=== PATIENT | female | born 1995 | race Caucasian/White ===

== ENCOUNTER 2021-05-31 16:37 | Observation (INO) | payer BC ==
[2021-05-31] MEDS ORDERED: SODIUM CHLORIDE 0.9% 1,000 ML IV STA (16:53)
[2021-05-31 17:10] LABS: Basophils % (A) 0 %; Eosinophils # (A) 0.1 k/uL (0-0.7); Eosinophils % (A) 1 %; HCT 39.5 % (34.0-46.0); HGB 13.3 gm/dL (11.4-16.0); Lymphocytes # (A) 2.3 k/uL (1.0-4.8); Lymphocytes % (A) 23 %; MCH 30.2 pg (25.0-35.0); MCHC 33.6 g/dL (31.0-37.0); MCV 89.8 fL (80.0-100.0); Mean Platelet Volume 7.2; Monocytes # (A) 0.5 k/uL (0-1.0); Monocytes % (A) 5 %; Neutrophils # (A) 7.1 k/uL (1.3-7.7); Neutrophils % (A) 70 %; Platelet Count 294 k/uL (150-450); RBC 4.41 m/uL (3.80-5.40); RDW 12.6 % (11.5-15.5); WBC 10.1 k/uL (3.8-10.6)
--- NOTE | 2021-05-31 17:17 | ED ---
Chest Pain HPI - General Stated Complaint: High BP Time Seen by Provider: 05/31/21 16:44 Source: patient, EMS, RN notes reviewed Mode of arrival: EMS Limitations: no limitations - History of Present Illness Initial Comments: This is a pleasant 25-year-old female presents to emergency department complaining of palpitations, intermittent chest discomfort, racing heartbeat, and elevated blood pressure. Patient ended up going to the urgent [facility] today due to symptoms that she has had since having COVID-19 in April. Patient states she tested positive in early April. Subsequently she developed these symptoms. She really denies any significant shortness of breath but does have chest discomfort and palpitations. Patient was sent here for evaluation. Patient was noted be hypertensive at urgent care as well. Denies any current chest pain. However she has a sensation of racing heartbeat. No leg pain or leg swelling. No chance of . Patient does take control pills. No other significant past medical history. No significant family history per patient. Nonsmoker. MD Complaint: chest pain - Related Data Home Medications Medication Instructions Recorded Confirmed Norethindrone [Shruthi] 0.35 mg PO DAILY 05/31/21 05/31/21 Allergies Allergy/AdvReac Type Severity Reaction Status Date / Time No Known Allergies Allergy Verified 05/31/21 18:30 Review of Systems ROS Statement: Those systems with pertinent positive or pertinent negative responses have been documented in the HPI. ROS Other: All systems not noted in ROS Statement are negative. Past Medical History Past Medical History: No Reported History History of Any Multi-Drug Resistant Organisms: None Reported Past Surgical History: No Surgical Hx Reported Past Psychological History: No Psychological Hx Reported Smoking Status: Never smoker Past Alcohol Use History: Occasional Past Drug Use History: Marijuana General Exam - General Exam Comments Initial Comments: Anxious-appearing 25-year-old female does not appear to be ill or toxic. Vital signs reviewed. Patient is hypertensive with a systolic of just over 170 and a diastolic of just over 100. Tachycardia. Limitations: no limitations General appearance: alert, anxious Head exam: Present: atraumatic, normocephalic, normal inspection Eye exam: Present: normal appearance, PERRL, EOMI. Absent: scleral icterus, conjunctival injection, periorbital swelling ENT exam: Present: normal exam, mucous membranes moist Neck exam: Present: normal inspection. Absent: tenderness, meningismus, lymphadenopathy Respiratory exam: Present: normal lung sounds bilaterally. Absent: respiratory distress, wheezes, rales, rhonchi, stridor Cardiovascular Exam: Present: normal rhythm, tachycardia, normal heart sounds. Absent: systolic murmur, diastolic murmur, rubs, gallop, clicks GI/Abdominal exam: Present: soft, normal bowel sounds. Absent: distended, tenderness, guarding, rebound, rigid Extremities exam: Present: normal inspection, full ROM, normal capillary refill. Absent: tenderness, pedal edema, joint swelling, calf tenderness Back exam: Present: normal inspection Neurological exam: Present: alert, oriented X3, CN II-XII intact Psychiatric exam: Present: normal affect, normal mood Skin exam: Present: warm, dry, intact, normal color. Absent: rash Course Vital Signs 05/31/21 05/31/21 05/31/21 16:41 18:59 21:07 Temperature 97.6 F Pulse Rate 133 H 121 H 120 H Respiratory 18 16 18 Rate Blood Pressure 179/108 146/106 162/102 O2 Sat by Pulse 100 100 98 Oximetry 05/31/21 05/31/21 21:51 23:33 Temperature Pulse Rate 125 H 101 H Respiratory 18 18 Rate Blood Pressure 147/106 O2 Sat by Pulse 100 98 Oximetry - Reevaluation(s) Reevaluation #1: 05/31/21 19:28 Medical record is reviewed Symptoms are improved here in the emergency department Patient is informed of results and questions answered Patient in no distress Patient states her anxiety is improved however she remains tachycardic with a heart rate of 122. Reevaluation #2: 06/01/21 21:30 Medical record is reviewed Symptoms are improved here in the emergency department Patient is informed of results and questions answered Patient in no distress Reevaluation #3: 06/01/21 22:31 Medical record is reviewed Symptoms are improved here in the emergency department Patient is informed of results and questions answered Patient in no distress Patient is still tachycardic. She is still here in the ER. Still hypertensive. Admitted under [facility] hospitalist group. [facility] Patient presents with chest discomfort, palpitations, tachycardia, hypertension since being diagnosed with COVID-19 in early April. Symptoms have persisted and actually worsened to a point where she went to urgent care today. Patient is on control pills. Patient has a PERC score of 2. We'll order a cardiac evaluation to include d-dimer. EKG done at 5:05 PM reveals sinus tachycardia at a rate of 117. Nonspecific T wave abnormalities seen in the inferiorly. Baseline artifact. No comparison study. Normal intervals. Patient had large right adrenal mass noted on CTA of the chest. No other acute findings. This does raise the suspicion of other disorders such as pheochromocytoma. Given the patient's atypical chest pain, hypertension, and tachycardia, where going to admit. Discussed in detail with the APC from the hospitalist group. Patient admitted under Dr. Austin. The case was discussed in detail with ED attending physician. Presentation, findings, treatment plan discussed in detail. - PERC Rule Heart Rate < 100: (1) Yes No Exogenous Estrogen: (1) Yes Critical Care Time Critical Care Time: Yes (31) Total Critical Care Time: 31 Critical Care Time: Multiple re-evaluations. Reevaluating patient for response to interventions. Multiple diagnostics with interpretation. Disposition Clinical Impression: Sinus tachycardia, Hypertension, Atypical chest pain, Adrenal mass, right Disposition: ADMITTED IP TO THIS [facility] Condition: Fair Time of Disposition: 21:13 Decision to Admit Reason: Admit from EC
[2021-05-31 17:23] LABS: ALT 14 U/L (4-34); AST 20 U/L (14-36); African American GFR (CKD) >90 (>60 ml/min/1.73 sqM); Albumin 4.9 g/dL (3.5-5.0); Alkaline Phosphatase 45 U/L (38-126); Amphetamine Screen,Urine Not Detected (NotDetected); Anion Gap 10 mmol/L; Barbiturate Screen,Urine Not Detected (NotDetected); Benzodiazepines Screen,Urine Not Detected (NotDetected); Blood Urea Nitrogen 9 mg/dL (7-17); Calcium 9.7 mg/dL (8.4-10.2); Carbon Dioxide 23 mmol/L (22-30); Chloride 108 mmol/L (98-107); Cocaine Screen,Urine Not Detected (NotDetected); Glucose 102 mg/dL (74-99); Magnesium 1.8 mg/dL (1.6-2.3); Methadone Screen, Urine Not Detected (NotDetected); Non-African American GFR(CKD) >90 (>60 ml/min/1.73 sqM); Opiate Screen,Urine Not Detected (NotDetected); Oxycodone Screen, Urine Not Detected (NotDetected); Phencyclidine Screen,Urine Not Detected (NotDetected); Potassium 3.5 mmol/L (3.5-5.1); Sodium 141 mmol/L (137-145); Total Bilirubin 0.8 mg/dL (0.2-1.3); Total Protein 7.9 g/dL (6.3-8.2); Tricyclic Antidepressant,Urine Not Detected (NotDetected); Urn Cannabinoid Scrn Not Detected (NotDetected)
--- NOTE | 2021-05-31 17:39 | XR ---
EXAMINATION TYPE: XR chest 1V portable DATE OF EXAM: 05/31/2021 COMPARISON: NONE HISTORY: Chest pain TECHNIQUE: FINDINGS: Heart and mediastinum are normal. Lungs are clear. Diaphragm is normal. Bony thorax appears normal. There are chest leads. IMPRESSION: Normal chest.
[2021-05-31] MEDS ORDERED: LORazepam 2 MG/ML INJ IV STA (17:44)
--- NOTE | 2021-05-31 20:58 | CT ---
EXAMINATION TYPE: CT angio chest DATE OF EXAM: 05/31/2021 COMPARISON: None HISTORY: chest pain and rapid heart rate CT DLP: 380.9 mGycm Automated exposure control for dose reduction was used. CONTRAST: Performed with IV Contrast, patient injected with 140 mL of Isovue 370. There are Three-D postprocessed images. The lungs are clear of infiltrate. There is no evidence of a pulmonary mass. There is no pleural effu luann. There is no pericardial effusion. Heart size is normal. There is no mediastinal adenopathy. There are no hilar masses. There is intact thoracic aorta. There is no evidence of aneurysm or dissection. There is normal contrast opacification of the pulmonary arteries. There are no filling defects. The t horacic spine is intact. There is no compression fracture. There is rounded low density 6 cm mass inv olving the right adrenal gland that has density of 10 and could be a cyst or myelolipoma. IMPRESSION: No evidence of pulmonary embolism. Large right adrenal mass with low-attenuation and suggestive of be nign disease.
[2021-05-31] MEDS ORDERED: LORazepam 2 MG/ML INJ IV PRN (21:16)
[2021-05-31] MEDS ORDERED: NALOXONE 0.4 MG/ML 1 ML VIAL IV PRN (21:16)
[2021-05-31] MEDS ORDERED: ACETAMINOPHEN TAB 325 MG TAB PO PRN (21:16)
[2021-05-31] MEDS ORDERED: ONDANSETRON 4 MG/2 ML VIAL IVP PRN (21:16)
[2021-05-31] MEDS ORDERED: MELATONIN 3 MG TABLET PO PRN (21:16)
[2021-05-31] MEDS: SODIUM CHLORIDE 0.9% 1,000 ML IV SCH (21:52)
[2021-06-01 00:51] VITALS: RESP 16
[2021-06-01 07:22] LABS: Basophils % (A) 0 %; Eosinophils # (A) 0.1 k/uL (0-0.7); Eosinophils % (A) 1 %; HCT 36.3 % (34.0-46.0); HGB 12.2 gm/dL (11.4-16.0); Lymphocytes # (A) 2.4 k/uL (1.0-4.8); Lymphocytes % (A) 26 %; MCH 30.6 pg (25.0-35.0); MCHC 33.5 g/dL (31.0-37.0); MCV 91.3 fL (80.0-100.0); Mean Platelet Volume 7.2; Monocytes # (A) 0.6 k/uL (0-1.0); Monocytes % (A) 6 %; Neutrophils # (A) 5.9 k/uL (1.3-7.7); Neutrophils % (A) 65 %; Platelet Count 246 k/uL (150-450); RBC 3.98 m/uL (3.80-5.40); RDW 12.7 % (11.5-15.5); WBC 9.1 k/uL (3.8-10.6)
[2021-06-01 07:51] LABS: African American GFR (CKD) >90 (>60 ml/min/1.73 sqM); Anion Gap 5 mmol/L; Blood Urea Nitrogen 7 mg/dL (7-17); Calcium 8.8 mg/dL (8.4-10.2); Carbon Dioxide 23 mmol/L (22-30); Chloride 109 mmol/L (98-107); Glucose 94 mg/dL (74-99); Magnesium 1.9 mg/dL (1.6-2.3); Non-African American GFR(CKD) >90 (>60 ml/min/1.73 sqM); Potassium 3.5 mmol/L (3.5-5.1); Sodium 137 mmol/L (137-145)
[2021-06-01] MEDS: SODIUM CHLORIDE 0.9% 1,000 ML IV SCH (11:10)
--- NOTE | 2021-06-01 13:16 | P.HPIM ---
History of Present Illness Patient was in 25-year-old female went into urgent care because of palpitations were anxious was anxious at the time. Patient was diagnosed with the COVID-19 last month. In urgent care patient is found to have elevated blood pressure systolic is going up to 200 and also tachycardia because of which the patient was sent to ER. Patient does have history of anxiety and was anxious during that time. Because of her recent COVID-19 infection there is a concern of pulmonary embolism considering her tachycardia CT of the chest was obtained, there is no pulmonary embolism but there is a large right adrenal mass with fluid attenuation are low Hounsfield units surgery history of benign disease. Because of this concern patient was admitted for a 24-hour urine metanephrine metanephrines. Since patient already collected half of that urine USE the collection after which patient will be discharged to follow up with the endocrinology as an outpatient and patient preferred to her primary care physician as well. Patient's EKG did show some T-wave inversions but this is probably secondary to left ventricle strain, patient doesn't have any chest pain and troponin is negative REVIEW OF SYSTEMS: CONSTITUTIONAL: No fever, no malaise, no fatigue. HEENT: No recent visual problems or hearing problems. Denied any sore throat. CARDIOVASCULAR: No chest pain, orthopnea, PND, no palpitations, no syncope. PULMONARY: No shortness of breath, no cough, no hemoptysis. GASTROINTESTINAL: No diarrhea, no nausea, no vomiting, no abdominal pain. NEUROLOGICAL: No headaches, no weakness, no numbness. HEMATOLOGICAL: Denies any bleeding or petechiae. GENITOURINARY: Denies any burning micturition, frequency, or urgency. MUSCULOSKELETAL/RHEUMATOLOGICAL: Denies any joint pain, swelling, or any muscle pain. ENDOCRINE: Denies any polyuria or polydipsia. The rest of the 14-point review of systems is negative. PHYSICAL EXAMINATION: GENERAL: The patient is alert and oriented x3, not in any acute distress. Well developed, well nourished. HEENT: Pupils are round and equally reacting to light. EOMI. No scleral icterus. No conjunctival pallor. Normocephalic, atraumatic. No pharyngeal erythema. No thyromegaly. CARDIOVASCULAR: S1 and S2 present. No murmurs, rubs, or gallops. PULMONARY: Chest is clear to auscultation, no wheezing or crackles. ABDOMEN: Soft, nontender, nondistended, normoactive bowel sounds. No palpable organomegaly. MUSCULOSKELETAL: No joint swelling or deformity. EXTREMITIES: No cyanosis, clubbing, or pedal edema. NEUROLOGICAL: Gross neurological examination did not reveal any focal deficits. SKIN: No rashes. Assessment and plan -Elevated blood pressure, tachycardia: Probably secondary to anxiety although it's reasonable considering adrenal mass and the CT to do urinary metanephrines for which patient will not need hospitalization patient will be discharged later today after collection of 24 hours of urine sample. Discussed with packerhead machine operator on phone. -Adrenal adenoma: As mentioned above further workup as an outpatient Patient will be discharged today patient will be referred to a primary care physician and packerhead machine operator. Past Medical History Past Medical History: No Reported History History of Any Multi-Drug Resistant Organisms: None Reported Past Surgical History: No Surgical Hx Reported Past Psychological History: No Psychological Hx Reported Smoking Status: Never smoker Past Alcohol Use History: Occasional Past Drug Use History: Marijuana Additional Drug Use History / Comment(s): occasional use of alcohol and marijuana Medications and Allergies Home Medications Medication Instructions Recorded Confirmed Type Norethindrone [Shruthi] 0.35 mg PO DAILY 05/31/21 05/31/21 History Allergies Allergy/AdvReac Type Severity Reaction Status Date / Time No Known Allergies Allergy Verified 05/31/21 18:30 Physical Exam Vitals: Vital Signs Temp Pulse Pulse Resp BP BP Pulse Ox 06/01/21 12:17 98.0 F 103 H 06/01/21 11:07 98.2 F 103 H 16 144/100 97 06/01/21 08:00 98.2 F 74 16 170/106 97 06/01/21 04:15 65 16 134/82 97 06/01/21 01:25 98.1 F 108 H 16 152/106 98 06/01/21 00:49 98 16 147/104 98 05/31/21 23:33 101 H 18 147/106 98 05/31/21 21:51 125 H 18 100 05/31/21 21:07 120 H 18 162/102 98 05/31/21 18:59 121 H 16 146/106 100 05/31/21 16:41 97.6 F 133 H 18 179/108 100 Intake and Output 05/31/21 06/01/21 06/01/21 22:59 06:59 14:59 Other: Voiding Method Toilet Toilet # Voids 1 Weight 79.379 kg 79.379 kg Results CBC & Chem 7: 06/01/21 06:51 06/01/21 06:51 Labs: Abnormal Lab Results - Last 24 Hours (Table) 05/31/21 06/01/21 Range/Units 16:56 06:51 Chloride 108 H 109 H (98-107) mmol/L Glucose 102 H (74-99) mg/dL Thrombosis Risk Factor Assmnt - Choose All That Apply Each Factor Represents 1 point: Oral contraceptives or hormone replacement therapy Thrombosis Risk Factor Assessment Total Risk Factor Score: 1 Thrombosis Risk Factor Assessment Level: Low Risk
--- NOTE | 2021-06-01 13:16 | P.DS ---
Providers Date of admission: 05/31/21 21:17 Attending physician: Timur Austin Consults: 05/31/21 21:16 Consult Physician Routine Consulting Provider: Pita Prince Consult Reason/Comments: Sinus tachycardia, adrenal mass Do you want consulting provider notified?: Yes Primary care physician: Stated None Hospital Course: Please refer to my history of present illness for further details Patient Condition at Discharge: Fair Plan - Discharge Summary Discharge Rx Participant: No New Discharge Prescriptions: No Action Norethindrone [Shruthi] 0.35 mg PO DAILY Discharge Medication List Norethindrone [Shruthi] 0.35 mg PO DAILY 05/31/21 [History] Follow up Appointment(s)/Referral(s): Prem Cormier MD [REFERRING] - 3 Days Priscilla Sylvester MD [STAFF PHYSICIAN] - 1 Week Discharge Disposition: HOME SELF-CARE
[2021-06-01 22:08] VITALS: TEMP 98.5
[2021-06-01 22:09] VITALS: BP 154/109; PULSE 88
[2021-06-05 08:22] LABS: Metanephrines 24 Hour,Urine 235 ug/day (52-341); Normetanephrine 24 Hour,Urine 224 ug/day (88-444); Total Metanephrines 24 Hour,Ur 459 ug/day (140-785); Urine Creatinine, 24 Hr 1.6 gm/24h (0.8-1.8)
[2021-06-08 16:36] LABS: Metanephrine, Free 33 pg/mL (< OR = 57); Normetanephrine, Free 39 pg/mL (< OR = 148); Total, Free (MN + NMN) 72 pg/mL (< OR = 205)
== END 2021-06-01 22:29 | disposition home or self-care (01) ==
LOC: EC 16:37 → 3SCARD 21:17
PROVIDERS: ADMIT Hospitalist; ATTEND Hospitalist
DX: R00.0 Tachycardia, unspecified (principal); R03.0 Elevated blood-pressure reading, without diagnosis of hypertension; R07.89 Other chest pain; F41.9 Anxiety disorder, unspecified; D35.00 Benign neoplasm of unspecified adrenal gland; Z79.3 Long term (current) use of hormonal contraceptives; Z86.16 Personal history of COVID-19; Z20.822 Contact with and (suspected) exposure to COVID-19
CPT/HCPCS: 96361; 96374; 99291; 36415; 93005; 83835 ×2; 85379; 80053; 80048; 83735 ×2; 84443; 84484; 85025 ×2; 81025; 80306; 87635; 71045; 71275; G0378 ×2; J2060; Q9967

== ENCOUNTER → 2021-07-09 | Outpatient (CLI) | payer BC ==
--- NOTE | 2021-07-10 08:32 | CT ---
EXAMINATION TYPE: CT abdomen pelvis w con DATE OF EXAM: 07/09/2021 COMPARISON: CT 05/31/2021 HISTORY: RIGHT ADRENAL MASS CT DLP: 831.6 mGycm Automated exposure control for dose reduction was used. TECHNIQUE: Helical acquisition of images from the lung bases through the pelvis have been completed. CONTRAST: Performed with Oral Contrast and with IV Contrast, patient injected with 100 mL of Isovue 300. FINDINGS: LUNG BASES: No significant abnormality is appreciated. AORTA: No significant abnormality is appreciated. LIVER/GB: No significant abnormality is appreciated. PANCREAS: No significant abnormality is seen. SPLEEN: No significant abnormality is seen. ADRENALS: Right adrenal lesion shows low-attenuation as noted on prior CT and measures approximately 6.2 cm in AP dimension. Hounsfield units on initial phase of the exam approximately 16, delayed postc ontrast images show Hounsfield units 15.4. KIDNEYS: No significant abnormality is seen. REPRODUCTIVE ORGANS: No significant abnormality is seen BOWEL: No significant abnormality is seen. FREE AIR: No Free Air visible. ASCITES: Small amount of fluid is present within the pelvis which is felt likely to be physiologic. PELVIC ADENOPATHY: None visualized. RETROPERITONEAL ADENOPATHY: No Retroperitoneal Adenopathy visible. URINARY BLADDER: No significant abnormality is seen. OSSEOUS STRUCTURES: No significant abnormality is seen. IMPRESSION: STABLE BENIGN APPEARING RIGHT ADRENAL LESION, FOLLOW-UP COULD BE PERFORMED TO ASSESS FOR STABILITY MR I OR ADRENAL MASS CT PROTOCOL COULD BE PERFORMED FOR ADDITIONAL EVALUATION.
== END | disposition home or self-care (01) ==
LOC: RADCTMAIN 17:58
PROVIDERS: ATTEND Family Medicine
DX: E27.8 Other specified disorders of adrenal gland (principal); R03.0 Elevated blood-pressure reading, without diagnosis of hypertension
CPT/HCPCS: 74177; Q9967

== ENCOUNTER → 2021-07-12 | Outpatient (CLI) | payer BC ==
--- NOTE | 2021-07-12 08:37 | US ---
EXAMINATION TYPE: US renal artery duplex complete DATE OF EXAM: 07/12/2021 COMPARISON: CT abdomen and pelvis 3 days ago. CLINICAL HISTORY: R03.0 Elevated blood pressure reading,. HTN, controlled with medication for 3 weeks . history of right adrenal mass MEASUREMENTS: RENAL SIZE: Rt Kidney: 10.5 x 5.9 x 5.3cm Lt Kidney: 12.1 x 5.7 x 4.9cm RESISTANCE INDEX Right: 0.60 Left: 0.60 RA/AO RATIO (< 3.5 ) Right: 0.9 Left: 0.8 RA VELOCITY ( < 180 cm/s) Right: 142.3cm/s Left: 119.3cm/s technical limitations due to large amount of overlying bowel content. aorta appears unremarkable. v isualized portions of the kidneys appear wnl. within area of right adrenal, hypoechoic area noted = 6 .0 x 3.8 x 6.2cm. limited evaluation of renal arteries due to overlying bowel, no evidence of elevate d velocities within visualized portions. No aneurysm in the aorta. Kidneys are symmetric and normal in size. No hydronephrosis seen bilaterall y. There is 6.0 x 3.8 cm oval anechoic lesion with increased through transmission corresponding to la rge right adrenal mass, suspected thin-walled cyst. Sampling of the renal arteries show satisfactory phasicity and velocity bilaterally. IMPRESSION: No ultrasound evidence for hemodynamically significant focal renal artery stenosis.
== END | disposition home or self-care (01) ==
LOC: RADUSWWP 06:57
PROVIDERS: ATTEND Family Medicine
DX: R03.0 Elevated blood-pressure reading, without diagnosis of hypertension (principal)
CPT/HCPCS: 93975

== ENCOUNTER → 2021-08-29 | Outpatient (CLI) | payer BC | END | disposition home or self-care (01) | LOC: LABWHC1 08:42 | PROVIDERS: ATTEND Internal Medicine Cardiovascular Disease | DX: I15.9 Secondary hypertension, unspecified (principal) | CPT/HCPCS: 36415; 82088; 82533; 84244 ==

== ENCOUNTER → 2021-09-30 | Outpatient (CLI) | payer BC ==
[2021-10-01 03:45] LABS: ACTH 21.2 pg/mL (0.00-45.99)
== END | disposition home or self-care (01) ==
LOC: LABWHC1 08:11
PROVIDERS: ATTEND Internal Medicine
DX: E27.9 Disorder of adrenal gland, unspecified (principal)
CPT/HCPCS: 36415; 82024; 82533; 82627